=== PATIENT | female | born 1985 | race Caucasian/White ===

== ENCOUNTER 2016-10-20 18:28 | Emergency (ER) | payer MEDICAID, OTHER ==
[~2016-10-20] VITALS: Ht 162.6 cm; Wt 108.8 kg
[~2016-10-20 18:28] MED LIST: Z.0.NO CURRENT MEDS
[2016-10-20 18:29] VITALS: BP 146/77; PULSE 93; RESP 20; TEMP 98.3; O2SAT 100
--- NOTE | 2016-10-20 19:12 | PD ---
HPI Chief Complaint: Medication Refill Request Time Seen by Provider: 18:50 Travel History International Travel<30 days: No Contact w/Intl Traveler<30days: No Traveled to known affect area: No History of Present Illness HPI 31-year-old female presents to the emergency department requesting perception for Lovenox as she just found out that she was . Patient has history of factor V Leiden and was told with any she would need to be on Lovenox as she was in the past. Patient is currently uninsured. She is not currently followed by hematology. She does take aspirin daily as recommended by her previous disability examiner Dr. Elli Zepeda who she last saw in 2009 with her last . Patient reports her last normal menstrual period was September 16, 2016. She took a home today which was positive. She reports that in the past she was on 40 mg of Lovenox subcutaneous daily during her entire in 2009. Patient reports she developed DVT in left and right lower extremity with last . Today patient denies any lower extremity swelling or pain. She denies any recent trauma, fall, head injury. She denies any recent surgeries. She denies headache, chest pain, shortness breath, nausea , vomiting, vaginal bleeding, extremity pain or swelling. PFSH Past Medical History Narrative Medical Factor V Leiden Blood Disorders: Yes (factor V) Influenza Vaccination: No ?: LMP: 09/14/16 : 1 Para: 1 Miscarriage: 0 : 0 Social History Alcohol Use: Yes (rarely) Tobacco Use: No Substance Use: No (Patient denies. ) Allergies-Medications (Allergen,Severity, Reaction): Coded Allergies: No Known Allergies (Verified , 10/20/16) Reported Meds & Prescriptions Reported Meds & Active Scripts Active Reported No Current Meds (Miscellaneous Medication) [facility] Physical Exam Narrative GENERAL: Alert, well-appearing female. No acute distress SKIN: Focused skin assessment warm/dry. No Ecchymosis or abrasions HEAD: Atraumatic. Normocephalic. EYES: Pupils equal and round. No scleral icterus. No injection or drainage. ENT: No nasal bleeding or discharge. Mucous membranes pink and moist. NECK: Trachea midline. No JVD. CARDIOVASCULAR: Regular rate and rhythm. No murmur appreciated. RESPIRATORY: No accessory muscle use. Clear to auscultation. Breath sounds equal bilaterally. GASTROINTESTINAL: Abdomen soft, non-tender, nondistended. Hepatic and splenic margins not palpable. MUSCULOSKELETAL: No obvious deformities. No clubbing. No cyanosis. No edema. No lower extremity tenderness. NEUROLOGICAL: Awake and alert. No obvious cranial nerve deficits. Motor grossly within normal limits. Normal speech. PSYCHIATRIC: Appropriate mood and affect; insight and judgment normal. Data Data Last Documented VS Vital Signs Date Time Temp Pulse Resp B/P Pulse Ox O2 Delivery O2 Flow Rate FiO2 10/20/16 18:29 98.3 93 20 146/77 100 Orders Enoxaparin Inj (Lovenox Inj) (10/20/16 19:15) Complete Blood Count With Diff (10/20/16 19:12) Basic Metabolic Panel (Bmp) (10/20/16 19:12) Prothrombin Time / Inr (Pt) (10/20/16 19:12) Act Partial Throm Time (Ptt) (10/20/16 19:12) [facility] Medical Decision Making Medical Screen Exam Complete: Yes Emergency Medical Condition: Yes Differential Diagnosis Factor V Leiden, Narrative Course 31-year-old female with history of factor V Leiden presents to emergency Department after a positive home test today. She was told by her previous hematologists that she would require anticoagulation with Lovenox with any future pregnancies. She is currently uninsured. She is not followed by hematology at this time. She presents emergency Department today for requesting prescription for Lovenox. Patient has no medical complaint. Attending physician Dr. Hogan spoke with on-call disability examiner Dr. Morales regarding patient's case. This patient was actually a patient of their group in 2009 with her last . They recommend giving patient first dose of Lovenox in the emergency department and having the patient follow up with them in office tomorrow. This was discussed with patient. She agrees to follow-up in office with Dr. Morales in Dr. Zepeda hematology tomorrow. Patient is also referred to [facility] for follow-up. CBC, BMP, PT, PTT obtained today. POC test: positive. Diagnosis Primary Impression: Factor V Leiden Additional Impression: Qualified Code: Z3A.01 - Less than 8 weeks gestation of Referrals: Elli Zepeda MD [facility] Additional Instructions: You were given your first injection of Lovenox today in the emergency department. Call for an appointment tomorrow with Dr. Melgar disability examiner. Make an appointment for follow-up with [facility]. Return to the emergency department if you develop any concerning symptoms. Disposition: 01 DISCHARGE HOME Condition: Stable Michelle Solis Oct 20, 2016 19:12
[2016-10-20] MEDS ORDERED: ENOXAPARIN SODIUM 40 MG/0.4 ML SYRINGE SQ ONE (19:15)
[2016-10-20 19:34] LABS: AUTOMATED NEUTROPHIL # 6.4 TH/MM3 (1.8-7.7); BASOPHIL % 0.5 % (0.0-2.0); EOSINOPHIL # 0.1 TH/MM3 (0-0.4); EOSINOPHIL % 0.8 % (0.0-4.0); HEMATOCRIT 36.8 % (35.0-46.0); HEMO FLAGS DIFF FINAL; LYMPH % 25.2 % (9.0-44.0); LYMPHOCYTE # 2.3 TH/MM3 (1.0-4.8); MEAN CORPUSCULAR HGB CONC 34.5 % (32.0-36.0); MONO % 4.7 % (0.0-8.0); NEUT % 68.8 % (16.0-70.0); PLATELET COUNT 272 TH/MM3 (150-450); RED BLOOD COUNT 4.39 MIL/MM3 (4.00-5.30); RED CELL DISTRIBUTION WIDTH 12.4 % (11.6-17.2); WHITE BLOOD COUNT 9.2 TH/MM3 (4.0-11.0)
[2016-10-20 19:48] LABS: POTASSIUM 3.7 MEQ/L (3.5-5.1)
[2016-10-20 19:52] LABS: BICARBONATE 26.2 MEQ/L (21.0-32.0)
[2016-10-20 19:54] LABS: APTT (PATIENT) 25.4 SEC (24.3-30.1); PROTHROMBIN TIME - PATIENT 10.5 SEC (9.8-11.6)
== END 2016-10-20 20:00 | disposition home or self-care (01) ==
LOC: PHEFT 18:28
DX: O99.111 Other diseases of the blood and blood-forming organs and certain disorders involving the immune mechanism complicating pregnancy, first trimester (principal); D68.51 Activated protein C resistance; Z3A.01 Less than 8 weeks gestation of pregnancy
CPT/HCPCS: 80048; 85025; 85610; 85730; 96372; 99283; J1650

== ENCOUNTER → 2017-01-22 | Outpatient (CLI) | payer MEDICAID | LOC: HPND 10:43 | DX: O99.112 Other diseases of the blood and blood-forming organs and certain disorders involving the immune mechanism complicating pregnancy, second trimester (principal); Z86.718 Personal history of other venous thrombosis and embolism | CPT/HCPCS: 76811 ==

== ENCOUNTER 2017-02-10 14:25 | Emergency (ER) | payer MEDICAID ==
--- NOTE | 2017-02-10 16:43 | PD ---
HPI Chief Complaint Abdominal pain and mild shortness of breath Date Seen: Feb 10, 2017 Time Seen: 16:15 Travel History International Travel<30 Days: No Contact w/Intl Traveler<30Days: No Known Affected Area: No History of Present Illness HPI Patient is 31-year-old white female now at 21 weeks who sees a in [place] for care and presents complaining of abdominal pain last few hours and shortness of breath.. The patient has history of factor V Leiden deficiency and is on Lovenox subcutaneous 40 mg a day, she had bilateral DVTs in 2012 and has had no other thromboembolic events, she sees the maternal medicine service here on there day it [place] as her high risk evaluations , she presented with some shortness of breath with associated with these pains in her abdomen at the umbilicus. She denies bleeding or leakage of fluid, she says baby is very active, heart rate is normal limits for 21 weeks and she is having contractions every 3 minutes Weeks Gestation: 21 Para: 1 : 2 History Past Medical History Narrative Medical Patient has a history of factor V Leiden deficiency and that has caused a hyper coagulable state for this patient she has a history of bilateral DVTs in 2012. She is on Lovenox now is less than full anticoagulation dose 40 mg a day he had no other thrombo-embolic events or pulmonary embolus ,etc. Obstetric History Obstetric History One vaginal delivery in the past Social History Alcohol Use: No Tobacco Use: No Substance Abuse: No Allergies-Medications (Allergen,Severity, Reaction): Coded Allergies: No Known Allergies (Verified , 10/20/16) Home Meds Reported Medications Miscellaneous (No Current Meds) [facility] [place] Review of Systems General / Constitutional: No: Fever, Weight Gain, Chills, Other Eyes: No: Diploplia, Blurred Vision, Visual changes, Pain, Photophobia HENT: No: Headaches, Vertigo, Lightheadedness Cardiovascular: No: Irregular Rhythm, Chest Pain or Discomfort, Palpitations, Tachycardia, Syncope, Varicosities, Edema, Cyanosis Respiratory: Short of Breath, No: Cough, Other Gastrointestinal: Abdominal Pain, No: Nausea, Vomiting, Diarrhea Genitourinary: No: Decreased Urinary Output, Oliguria Musculoskeletal: No: Limited ROM, Weakness, Cramping, Edema, Pain Skin: No Rash, No Itching, No Dryness, No Lumps, No Change in Pigmentation, No Change in Nails, No Alopecia, No Lesions Neurologic: No: Weakness, Dizziness, Syncope, Focal Abnormalities, Coordination Problem, Headache, Slurred Speech, Seizures Psychiatric: No: Depression, Suicidal Ideations, Homicidal Ideation Endocrine: No: Heat Intolerance, Cold Intolerance, Polydipsia, Polyuria, Other Physical Exam Narrative GENERAL: Well-nourished, well-developed patient. SKIN: Warm and dry. HEAD: Normocephalic and atraumatic. EYES: No scleral icterus. No injection or drainage. ENT: No nasal drainage noted. Mucous membranes pink. Airway patent. NECK: Supple, trachea midline. No JVD. CARDIOVASCULAR: Regular rate and rhythm without murmurs, gallops, or rubs. RESPIRATORY: Breath sounds equal bilaterally. No accessory muscle use. BREASTS: Bilateral exam showed no masses , no retractions, no nipple discharge. ABDOMEN/GI: Abdomen soft slightly-tender at the umbilicus and in the area left and right, bowel sounds present, no rebound, no guarding Gravid to [21-] weeks size Fundal Height: [-At umbilicus] GENITOURINARY: External Genitalia: intact and normal in appearance BUS glands: [-] Cervix: Posterior-] Dilatation: [-0] Effacement: [-0] Station: [-3] Membranes: [intact ] Uterine Contractions: [q 3 min-] FHT's: Category: [1-] Baseline: [-133] EXTREMITIES: No cyanosis 2+ edema.in legs no pain BACK: Nontender without obvious deformity. No CVA tenderness. NEUROLOGICAL: Awake and alert. Motor and sensory grossly within normal limits. Five out of 5 muscle strength in all muscle groups. Normal speech. Data Data Orders Orders Vital Signs (Adult) .ON ADMISSION (02/10/17 16:20) ^ Labor Status (02/10/17 16:20) Cbc No Diff, Includes Plts (02/10/17 16:20) Lactated Ringer's 1000 Ml Inj (Lr 1000 M (02/10/17 16:20) Prothrombin Time / Inr (Pt) (02/10/17 16:21) Act Partial Throm Time (Ptt) (02/10/17 16:21) Us Leg Venous Doppler Bilat (02/10/17 ) Ventilation & Perfusion Scan (02/10/17 ) Terbutaline Inj (Brethine Inj) (02/10/17 16:45) Fentanyl Inj (Fentanyl Inj) (02/10/17 16:45) Labs Urine dipstick negative except for 1+ protein Dopplers of her lower extremities negative for DVT and VQ scan negative for pulmonary embolus PT/PTT within normal limits other lab also within normal limits MDM Interpretation(s) Patient is 31-year-old white female at 21 weeks who presented with shortness of breath and abdominal pain. She was maureen initially, heart rates reactive for 21 weeks patient has a history of factor V Leiden deficiency and this of hypercoagulable with history of DVT in the past. With her shortness of breath swelling rule out DVT as well as pulmonary embolus which was done with Doppler studies a lower extremities which were negative and a negative VQ scan, her labs within normal limits PT PTT within normal limits she is on Lovenox 40 mg daily, she was maureen initially on admission but IV fluid terbutaline and this low dose of fentanyl IV stop her contractions, her cervix is closed thick and high Plan Plan to discharge patient home today to continue current therapies and follow- up with her OB provider in [place] Diagnosis Diagnosis: Primary Impression: Abdominal pain during in second trimester Additional Impressions: Factor V Leiden Shortness of breath due to in second trimester Disposition: 01 DISCHARGE HOME Condition: Stable Jay Jay Dunn II, MD Feb 10, 2017 16:43
[2017-02-10] MEDS ORDERED: TERBUTALINE INJ 1 MG/ML AMP SQ PRN (16:45)
[2017-02-10 16:49] LABS: HEMATOCRIT 31.9 % (35.0-46.0); MEAN CELL VOLUME 87.3 FL (80.0-100.0); MEAN CORPUSCULAR HGB CONC 35.5 % (32.0-36.0); PLATELET COUNT 229 TH/MM3 (150-450); RED BLOOD COUNT 3.65 MIL/MM3 (4.00-5.30); RED CELL DISTRIBUTION WIDTH 13.2 % (11.6-17.2); REVIEW FLAG FINAL; WHITE BLOOD COUNT 8.6 TH/MM3 (4.0-11.0)
[2017-02-10 17:05] VITALS: PULSE 85
[2017-02-10 17:10] VITALS: PULSE 90
[2017-02-10 17:15] VITALS: RESP 17
[2017-02-10 17:32] LABS: INTERNATIONAL NORMALIZED RATIO 0.9 RATIO; PROTHROMBIN TIME - PATIENT 10.3 SEC (9.8-11.6)
[2017-02-10 17:44] LABS: APTT (PATIENT) 24.6 SEC (24.3-30.1)
--- NOTE | 2017-02-10 17:57 | RADRPT ---
EXAM DATE/TIME: 02/10/2017 17:18 [facility] COMPARISON: No previous studies available for comparison. INDICATIONS : Bilateral leg swelling. MEDICAL HISTORY : . Factor v blood disorder. SURGICAL HISTORY : None. ENCOUNTER: Initial ACUITY: 1 day PAIN SCORE: 10/10 LOCATION: Bilateral legs. TECHNIQUE: Venous ultrasound of the left and right leg was performed from the inguinal ligament to the proximal calf. Real-time, color Doppler and spectral tracing, compression and augmentation techniques were us ed. FINDINGS: RIGHT LEG: There is normal compressibility of the deep venous system from the inguinal region to the proximal ca lf. No echogenic clot is seen in the lumen of the common femoral, femoral, popliteal, and posterior tibial veins. There is a normal response of the venous system to proximal and distal augmentation an d respiration. LEFT LEG: There is normal compressibility of the deep venous system from the inguinal region to the proximal ca lf. No echogenic clot is seen in the lumen of the common femoral, femoral, popliteal, and posterior tibial veins. There is a normal response of the venous system to proximal and distal augmentation an d respiration. CONCLUSION: Negative for deep venous thrombosis. Dwayne Mares MD FACR on February 10, 2017 at 17:55 Board Certified Radiologist. This report was verified electronically.
[2017-02-10] MEDS ORDERED: LACTATED RINGER'S 1000 ML INJ 1,000 ML IV SCH (18:00)
--- NOTE | 2017-02-10 18:40 | RADRPT ---
EXAM DATE/TIME: 02/10/2017 18:05 [facility] COMPARISON: No previous studies available for comparison. INDICATIONS : Dyspnea. DOSE: 1.1 mCi Tc99m Labeled MAA IV MEDICAL HISTORY : None SURGICAL HISTORY : None. ENCOUNTER: Initial ACUITY: 1 day PAIN SCALE: 0/10 LOCATION: chest TECHNIQUE: The patient was injected with MAA, and eight-view perfusion scan was performed. FINDINGS: PERFUSION: There is a homogenous pattern of radiotracer uptake throughout both lungs. CONCLUSION: 1. Normal perfusion scan Wilver Ratliff MD on February 10, 2017 at 18:38 Board Certified Radiologist. This report was verified electronically.
--- NOTE | 2017-02-10 19:15 | RADRPT ---
EXAM DATE/TIME: 02/10/2017 18:39 [facility] COMPARISON: No previous studies available for comparison. INDICATIONS : Short of breath and post VQ scan. MEDICAL HISTORY : None. SURGICAL HISTORY : None. ENCOUNTER: Initial ACUITY: 1 day PAIN SCORE: 0/10 LOCATION: Bilateral chest FINDINGS: A single view of the chest demonstrates the lungs to be symmetrically aerated without evidence of mas s, infiltrate or effusion. The cardiomediastinal contours are unremarkable. Osseous structures are intact. CONCLUSION: 1. No acute cardiopulmonary disease. Wilver Ratliff MD on February 10, 2017 at 19:13 Board Certified Radiologist. This report was verified electronically.
== END 2017-02-10 19:20 | disposition home or self-care (01) ==
LOC: HOBED 14:25
DX: O26.892 Other specified pregnancy related conditions, second trimester (principal); O99.112 Other diseases of the blood and blood-forming organs and certain disorders involving the immune mechanism complicating pregnancy, second trimester; D68.51 Activated protein C resistance; R06.02 Shortness of breath; R10.9 Unspecified abdominal pain; Z3A.21 21 weeks gestation of pregnancy
CPT/HCPCS: 71010; 78580; 85027; 85610; 85730; 93970; 96372; 96374; 99285; A9540; J3010; J3105; J7120

== ENCOUNTER → 2017-02-20 | Outpatient (CLI) | payer MEDICAID | LOC: HPND 09:45 | DX: O99.112 Other diseases of the blood and blood-forming organs and certain disorders involving the immune mechanism complicating pregnancy, second trimester (principal); D68.51 Activated protein C resistance | CPT/HCPCS: 76816 ==

== ENCOUNTER → 2017-03-21 | Outpatient (CLI) | payer MEDICAID | LOC: HPND 03-06 10:38 | DX: O99.112 Other diseases of the blood and blood-forming organs and certain disorders involving the immune mechanism complicating pregnancy, second trimester (principal) | CPT/HCPCS: 76816 ==

== ENCOUNTER 2017-06-06 10:00 | Emergency (ER) | payer MEDICAID ==
--- NOTE | 2017-06-06 11:07 | PD ---
HPI Chief Complaint contractions Date Seen: Jun 06, 2017 Time Seen: 10:30 Travel History International Travel<30 Days: No Contact w/Intl Traveler<30Days: No Known Affected Area: No History of Present Illness HPI Mrs. Malhotra is a 31yo at 37/6 weeks gestation with A PMH of Factor V Leiden presenting today with concerns about premature labor. She states that when contractions started 2 days ago she subsequently went to [facility] where she was found to be 1 cm but not in labor. She was discharged from there at 4 AM and her contractions stopped a few hours later. Yesterday when she saw her OB she was 1-2 cm and 60% effaced. This morning on her way to her OB diagnostics appointment she felt the contractions start again. She states that they feel like menstrual cramps with lower abdominal pain. No leakage of fluids, no vaginal bleeding, she is feeling baby move. No CP , no SOB. Para: 1 : 2 History Past Medical History Narrative Medical Factor V Leiden Obstetric History Obstetric History son, 7-year-old, at 38 weeks Past Surgical History Surgical History: No Previous Surgery Family History Narrative Family History Father with clotting disorder Social History Narrative Social History Lives in [place] with and son Denies alcohol, tobacco, or illicit drug use Alcohol Use: No Tobacco Use: No Substance Abuse: No Allergies-Medications (Allergen,Severity, Reaction): Coded Allergies: No Known Allergies (Verified , 10/20/16) Home Meds Reported Medications Miscellaneous (No Current Meds[place] [facility] [place] N[place] Medication On subcutaneous heparin 75K units every 12 hours Review of Systems General / Constitutional: No: Fever, Chills Eyes: No: Blurred Vision HENT: No: Headaches Cardiovascular: No: Chest Pain or Discomfort Respiratory: No: Short of Breath Gastrointestinal: No: Nausea, Vomiting Genitourinary: No: Dysuria Musculoskeletal: No: Weakness Skin: No Rash Neurologic: No: Dizziness Physical Exam Narrative GENERAL: Well-nourished, well-developed patient. SKIN: Warm and dry. HEAD: Normocephalic and atraumatic. EYES: No scleral icterus. No injection or drainage. ENT: No nasal drainage noted. Mucous membranes pink. Airway patent. NECK: Supple, trachea midline. No JVD. CARDIOVASCULAR: Regular rate and rhythm without murmurs, gallops, or rubs. RESPIRATORY: Breath sounds equal bilaterally. No accessory muscle use. BREASTS: Bilateral exam showed no masses , no retractions, no nipple discharge. ABDOMEN/GI: Abdomen soft, non-tender, bowel sounds present, no rebound, no guarding Gravid to 37 weeks size GENITOURINARY: External Genitalia: intact and normal in appearance Cervix: posterior Dilatation: 0-1 Effacement: 50 Station: -3 Membranes: intact Uterine Contractions: yes FHT's: Category: 1 Baseline: 130s Reactive: yes Variability: moderate Decels: none EXTREMITIES: No cyanosis or edema. BACK: Nontender without obvious deformity. No CVA tenderness. NEUROLOGICAL: Awake and alert. Motor and sensory grossly within normal limits. Five out of 5 muscle strength in all muscle groups. Normal speech. Data Data Vital Signs Reviewed: Yes MDM Plan 31yo at 37/6 with PMH of Factor V Leiden here for concerns of labor. FHT is Category 1 and reassuring Cervix is 0-1cm with no change Reassured patient that she is not in labor at this time Advised patient to return to the hospital if any concerns about vaginal bleeding or decreased movement SDW Dr. Hdez Diagnosis Diagnosis: Primary Impression: Uterine contractions during Disposition: DISCHARGE HOME Condition: Stable Julisa Shelley MD R1 Jun 06, 2017 11:07
== END 2017-06-06 11:21 | disposition home or self-care (01) ==
LOC: HOBED 10:00
DX: O62.4 Hypertonic, incoordinate, and prolonged uterine contractions (principal); Z3A.37 37 weeks gestation of pregnancy
CPT/HCPCS: 59025